=== PATIENT | male | born 1985 | race Caucasian/White ===

== ENCOUNTER → 2020-05-17 | Outpatient (CLI) | payer BC ==
--- NOTE | 2020-05-18 16:53 | SLEEPHOME ---
NOCTURNAL POLYSOMNOGRAPHY HOME DATE: 05/17/2020 ORDERED BY: KALPANA Brannon Nocturnal polysomnography was performed for the evaluation of sleep physiology in this patient with a history of snoring and excessive somnolence. Seven hours and 55 minutes of data were reviewed. There were 380 minutes of sleep identified. Sleep latency was mildly prolonged at 12 minutes. REM latency was prolonged at 160 minutes. Sleep architecture once established was fairly good. There was a period of wake around 3:30 to 4:30 resulting in a reduced sleep efficiency of 80.9%. Three REM cycles were appreciated. The patient's electrocardiogram showed a sinus rhythm with an average heart rate of 58 beats per minute. EEG showed normal waveforms for wake and sleep stages. There were 43 respiratory events identified of 10 seconds in duration or greater for an apnea hypopnea index of 6.8. Events were obstructive not exclusive to sleep stage, more frequent in the supine posture. Arousals from respiratory events occurred 6.8 times per hour and oxygen desaturations were seen below 90% with some minor activity in the limb leads. Limb movement arousal index was 4.1. Snoring was noted over the entire study. IMPRESSIONS: Obstructive sleep apnea syndrome (G47.33). Apnea hypopnea index 6.8. RECOMMENDATION: The patient should be encouraged to return to the sleep disorder center for pressure therapy. In the interim, alcohol and sedative avoidance should be practiced and caution exercised during the operation of motor vehicles. Syeda Valle DO
== END ==
LOC: M SLEEP 20:00
PROVIDERS: ATTEND Nurse Practitioner Family
DX: G47.33 Obstructive sleep apnea (adult) (pediatric) (principal)

== ENCOUNTER → 2020-06-07 | Outpatient (CLI) | payer BC ==
--- NOTE | 2020-06-13 15:07 | SLEEPCENT ---
NOCTURNAL POLYSOMNOGRAPHY CPAP TITRATION DATE: 06/07/2020 ORDERED BY: KALPANA Brannon Nocturnal polysomnography was performed for the titration of pressure therapy in this patient with obstructive sleep apnea syndrome with apnea-hypopnea index of 6.8. For testing a ResMed AirFit F20 full face mask of medium size was used, 4 cm of water pressure were applied to the circuit, and the lights were extinguished. 7 hours and 47 minutes of data were reviewed. There were 435.5 minutes of sleep identified. Sleep latency was mildly prolonged at 11.5 minutes. REM latency was normal at 89 minutes. Sleep architecture was good with three REM cycles noted. Overall sleep efficiency was 94.7%. The electrocardiogram showed a sinus rhythm with an average heart rate of 60 beats per minute. EEG showed normal waveforms for wake and sleep. Respiratory events were fully palliated with CPAP at a pressure of +10 and remaining measures of sleep physiology were normal. IMPRESSION: Obstructive sleep apnea syndrome (G47.33). RECOMMENDATION: Nightly use of pressure therapy 10 cm of water.
== END ==
LOC: M SLEEP 20:00
PROVIDERS: ATTEND Nurse Practitioner Family
DX: G47.33 Obstructive sleep apnea (adult) (pediatric) (principal)

== ENCOUNTER 2025-05-24 10:24 | Day surgery (SDC) | payer OTHER ==
[~2025-05-24] VITALS: Ht 185.4 cm; Wt 102.1 kg
[~2025-05-24 10:24] MED LIST: FLON1SPR; LEVO2TA PO; SYNT25TA PO; THERTAB52 PO
[2025-05-24 11:01] LABS: PLATELET COUNT, AUTOMATED 245 10^3/uL (150-450)
[2025-05-24] MEDS: LR 1,000 ML IV SCH (11:15)
[2025-05-24] MEDS ORDERED: MIDAZOLAM INJ 2 MG/2 ML VIAL As Ordered ONE (11:16)
[2025-05-24] MEDS ORDERED: dexAMETHasone 4 MG/ML 1 ML VIAL As Ordered ONE (11:18)
[2025-05-24] MEDS ORDERED: ROCURONIUM BROMIDE 50MG/5ML VIAL As Ordered ONE (11:18)
[2025-05-24] MEDS ORDERED: ACETAMINOPHEN 1000MG/100ML IV BAG As Ordered ONE (11:18)
[2025-05-24] MEDS ORDERED: ONDANSETRON 4MG/2ML VIAL As Ordered ONE (11:18)
[2025-05-24] MEDS ORDERED: KETOROLAC 30 MG/ML 1 ML VIAL As Ordered ONE (11:18)
[2025-05-24] MEDS ORDERED: SUGAMMADEX SODIUM 500 MG/5 ML VIAL As Ordered ONE (11:18)
[2025-05-24] MEDS ORDERED: LIDOCAINE 2% 100 MG/5 ML SDV (FOR ANES.) As Ordered ONE (11:18)
[2025-05-24] MEDS ORDERED: OXYM15SP2 (12:01)
[2025-05-24] MEDS ORDERED: ACET-897 PO (12:02)
[2025-05-24] MEDS: HEPARIN SOD 5000 UNITS/ML 1 ML VIAL/SYRINGE SQ ONE (13:26)
[2025-05-24] MEDS: ceFAZolin SOD 2 GM IV ONCE IV ONE (13:30)
[2025-05-24] MEDS ORDERED: HYDROmorphone HCL 2 MG/ML 1 ML VIAL As Ordered ONE (13:50)
[2025-05-24] MEDS ORDERED: LR 1,000 ML IV SCH (14:50)
[2025-05-24] MEDS: ONDANSETRON 4MG/2ML VIAL IV PRN (15:12)
[2025-05-24] MEDS: HYDROMORPHONE HCL 0.5 MG/0.5 ML SYRINGE IV PRN (15:14)
[2025-05-24 15:40] VITALS: BP 120/80; TEMP 97.5; O2SAT 97
== END 2025-05-24 16:15 | disposition home or self-care (01) ==
LOC: M SDC 10:24
PROVIDERS: ATTEND Surgery
DX: K42.0 Umbilical hernia with obstruction, without gangrene (principal); G47.30 Sleep apnea, unspecified; E03.9 Hypothyroidism, unspecified; Z88.1 Allergy status to other antibiotic agents; Z79.899 Other long term (current) drug therapy; Z79.890 Hormone replacement therapy
CPT/HCPCS: 36415; 49592; 85027; C1781; J0131; J0665; J0688; J1100; J1171; J1885; J2250; J2405; J3010; S2900